=== PATIENT | male | born 1990 | race African-American/Black ===

== ENCOUNTER 2024-02-06 22:17 | Emergency (ER) | payer SELFPAY ==
--- NOTE | 2024-02-06 23:19 | ER ---
Nurse's Notes [facility] Name: Moe Wiley III Age: 33 yrs Sex: Male : 1990 Arrival Date: 02/06/2024 Time: 22:17 Bed DX4 Private MD: Diagnosis: Acute bronchitis, unspecified Presentation: 02/05 22:33 Chief complaint: Patient states: painful/ continuous cough X6 days with sore throat. lg3 pain to L lung region. Coronavirus screen: Client denies travel out of the [place] in the last 14 days. Client presents with at least one sign or symptom that may indicate coronavirus-19. Standard/surgical mask placed on the client. Ebola Screen: No symptoms or risks identified at this time. Initial Sepsis Screen: Does the patient meet any 2 criteria? No. Patient's initial sepsis screen is negative. Does the patient have a suspected source of infection? No. Patient's initial sepsis screen is negative. Risk Assessment: Do you want to hurt yourself or someone else? Patient reports no desire to harm self or others. Onset of symptoms was February 01, 2024. 22:33 Method Of Arrival: Ambulatory lg3 22:33 Acuity: JOSE MARTIN 4 lg3 Triage Assessment: 22:35 General: Appears in no apparent distress. comfortable, Behavior is calm, cooperative. lg3 Pain: Complains of pain in left lateral anterior chest Pain does not radiate. Aggravated by cough. EENT: No deficits noted. No signs and/or symptoms were reported regarding the EENT system. Neuro: No deficits noted. Goldsmith Agitation-Sedation Scale (RASS): 0 - Alert and Calm Level of Consciousness is awake, alert, obeys commands, Oriented to person, place, time, situation. Cardiovascular: No deficits noted. Capillary refill < 3 seconds Clubbing of nail beds is absent JVD is absent Patient's skin is warm and dry. Respiratory: Reports cough that is pain with cough Airway is patent Respiratory effort is even, unlabored, Respiratory pattern is regular, symmetrical. GI: No deficits noted. No signs and/or symptoms were reported involving the gastrointestinal system. : No deficits noted. No signs and/or symptoms were reported regarding the genitourinary system. Derm: No deficits noted. No signs and/or symptoms reported regarding the dermatologic system. Skin is intact, is healthy with good turgor, Skin is dry, Skin is normal, Skin temperature is warm. Musculoskeletal: No deficits noted. No signs and/or symptoms reported regarding the musculoskeletal system. Circulation, motion, and sensation intact. Range of motion: intact in all extremities. Historical: - Allergies: 22:35 No Known Allergies; lg3 - Home Meds: 22:35 None [Active]; lg3 - PMHx: 22:35 None; lg3 - PSHx: 22:35 None; lg3 - Immunization history:: Adult Immunizations up to date. - Infectious Disease History:: Denies. - Social history:: Smoking status: Patient denies any tobacco usage or history of. Patient uses alcohol, occasionally. Patient/guardian denies using street drugs. Screenin/14 00:[address] [facility] ED Fall Risk Assessment (Adult) History of falling in the last 3 months, lg3 including since admission No falls in past 3 months (0 pts) Confusion or Disorientation No (0 pts) Intoxicated or Sedated No (0 pts) Impaired Gait No (0 pts) Mobility Assist Device Used No (0 pt) Altered Elimination No (0 pt) Score/Fall Risk Level 0 - 2 = Low Risk Oriented to surroundings, Maintained a safe environment, Educated pt \T\ family on fall prevention, incl call for assistance when getting out of bed, Assessed \T\ reinforced patient's understanding of fall precautions. Abuse screen: Denies threats or abuse. Denies injuries from another. Nutritional screening: No deficits noted. Tuberculosis screening: No symptoms or risk factors identified. Assessment: 02/05 23:35 General: see triage assessment. lg3 02/06 00:10 Reassessment: Patient appears in no apparent distress at this time. No changes from lg3 previously documented assessment. Patient and/or family updated on plan of care and expected duration. Pain level reassessed. Patient is alert, oriented x 3, equal unlabored respirations, skin warm/dry/pink. Vital Signs: 02/05 22:33 BP 130 / 88; Pulse 98; Resp 17 S; Temp 98.6(O); Pulse Ox 100% on R/A; Weight 95.25 kg lg3 (R); Height 5 ft. 9 in. (R); 02/06 00:11 BP 134 / 81; Pulse 91; Resp 18 S; Pulse Ox 100% on R/A; lg3 02/05 22:33 Body Mass Index 31.01 (95.25 kg, 175.26 cm) lg3 ED Course: 02/05 22:24 Patient arrived in ED. ra3 22:35 Triage completed. lg3 22:35 Arm band placed on right wrist. lg3 22:36 Heather Chisholm [facility]C [facility]. sb4 22:37 Irving Herrera MD is Attending Physician. sb4 22:59 Chest Pa And Lat (2 Views) XRAY In Process Unspecified. EDMS 02/06 00:03 Marion Baum, RN is Primary Nurse. lg3 00:10 Patient has correct armband on for positive identification. lg3 00:10 No provider procedures requiring assistance completed. Patient did not have IV access lg3 during this emergency room visit. Administered Medications: 00:04 Drug: Dexamethasone IM 10 mg IM once Route: IM; Site: left deltoid; cp4 00:11 Follow up: Response: No adverse reaction lg3 Medication: 00:11 VIS not applicable for this client. lg3 Outcome: 02/05 23:19 Discharge ordered by . sb4 02/06 00:11 Discharged to home ambulatory, lg3 Condition: stable Discharge instructions given to patient, Instructed on discharge instructions, follow up and referral plans. medication usage, Demonstrated understanding of instructions, follow-up care, medications, Prescriptions given X 2, 00:12 Patient left the ED. lg3 Signatures: Dispatcher [employer] EDMS Marion Baum RN RN lg3 Heather Chisholm PA-C PA-C sb4 Dania Askew cp4 Janay Valle ra3 Corrections: (The following items were deleted from the chart) 02/05 22:37 22:33 BP 140 / 92; Pulse 98bpm; Resp 17bpm; Spontaneous; Pulse Ox 100% RA; Temp 98.6F lg3 Oral; 95.25 kg Reported; Height 5 ft. 9 in. Reported; BMI: 31.0; lg3
--- NOTE | 2024-02-06 23:19 | EDPHYS ---
Physician Documentation [facility] Name: Moe Wiley III Age: 33 yrs Sex: Male : 1990 Arrival Date: 02/06/2024 Time: 22:17 Bed DX4 Private MD: SHY Physician Irving Herrera HPI: 02/06 00:07 This 33 yrs old Black Male presents to ER via Ambulatory with complaints of Painful sb4 Cough. 00:07 The patient or guardian reports cough, described as moderate, with productive sputum, sb4 that is yellow. Onset: The symptoms/episode began/occurred 8 day(s) ago. Modifying factors: The symptoms are alleviated by nothing, the symptoms are aggravated by exertion. Associated signs and symptoms: The patient has no apparent associated signs or symptoms. The patient has not experienced similar symptoms in the past. The patient has not recently seen a physician. Historical: - Allergies: 02/05 22:35 No Known Allergies; lg3 - Home Meds: 22:35 None [Active]; lg3 - PMHx: 22:35 None; lg3 - PSHx: 22:35 None; lg3 - Immunization history:: Adult Immunizations up to date. - Infectious Disease History:: Denies. - Social history:: Smoking status: Patient denies any tobacco usage or history of. Patient uses alcohol, occasionally. Patient/guardian denies using street drugs. ROS: 02/06 00:07 Constitutional: Negative for fever, chills, and weight loss, sb4 Respiratory: Positive for cough, with yellow sputum, pleurisy, All other systems are negative, Exam: 00:07 Constitutional: This is a well developed, well nourished patient who is awake, alert, sb4 and in no acute distress. Head/Face: Normocephalic, atraumatic. Eyes: Extra-ocular motions intact. Periorbital areas with no swelling, redness, or edema. ENT: Mucous membranes moist. Cardiovascular: Regular rate and rhythm with a normal S1 and S2. Respiratory: Lungs have equal breath sounds bilaterally, clear to auscultation and percussion. No rales, rhonchi or wheezes noted. No increased work of breathing, no retractions or nasal flaring. Skin: Warm, dry with normal turgor. Normal color with no rashes, no lesions, and no evidence of cellulitis. Vital Signs: 02/05 22:33 BP 130 / 88; Pulse 98; Resp 17 S; Temp 98.6(O); Pulse Ox 100% on R/A; Weight 95.25 kg lg3 (R); Height 5 ft. 9 in. (R); 02/06 00:11 BP 134 / 81; Pulse 91; Resp 18 S; Pulse Ox 100% on R/A; lg3 02/05 22:33 Body Mass Index 31.01 (95.25 kg, 175.26 cm) lg3 MDM: 02/05 22:37 Patient medically screened. sb4 02/06 00:07 Data reviewed: vital signs, nurses notes, radiologic studies, and as a result, I will sb4 discharge patient. Counseling: I had a detailed discussion with the patient and/or guardian regarding the historical points, exam findings, and any diagnostic results supporting the discharge/admit diagnosis, radiology results, the need for outpatient follow up, for definitive care, to return to the emergency department if symptoms worsen or persist or if there are any questions or concerns that arise at home. 02/05 22:44 Order name: Chest Pa And Lat (2 Views) XRAY sb4 Administered Medications: 00:04 Drug: Dexamethasone IM 10 mg IM once Route: IM; Site: left deltoid; cp4 00:11 Follow up: Response: No adverse reaction lg3 Disposition Summary: 02/06/24 23:19 Discharge Ordered Notes: Location: Home sb4 Problem: new sb4 Symptoms: are unchanged sb4 Condition: Stable sb4 Diagnosis - Acute bronchitis, unspecified sb4 Followup: sb4 - With: Emergency Department - When: As needed - Reason: Trouble breathing, Worsening of condition Discharge Instructions: - Discharge Summary Sheet sb4 - Acute Bronchitis, Adult sb4 Forms: - Patient Portal Instructions sb4 - Leadership Thank You Letter sb4 Prescriptions: - Tessalon Perles 100 mg Oral Capsule - take 1 capsule ORAL route every 8 hours As needed; 15 capsule; Refills: 0, sb4 Product Selection Permitted - Prednisone 20 mg Oral Tablet - take 1 tablet ORAL route every 12 hours for 5 days; 10 tablet; Refills: 0, sb4 Product Selection Permitted Signatures: Dispatcher [employer] Marion Ennis RN RN lg3 Heather Chisholm PA-C PA-C sb4 Dania Askew cp4
[2024-02-07] MEDS ORDERED: dexAMETHasone 10 MG/ML VIAL ONE (00:02)
[2024-02-07 05:03] VITALS: TEMP 98.6; O2SAT 100
[2024-02-07 05:06] VITALS: BP 134/81
--- NOTE | 2024-02-07 06:23 | RAD REPORT ---
EXAM DESCRIPTION: Chest Pa And Lat (2 Views) CLINICAL HISTORY: Cough;Congestion;Chest pain TECHNIQUE: PA and lateral chest COMPARISON: None available for comparison FINDINGS: CHEST: Heart: The cardiomediastinal silhouette is within normal limits. Lungs: No focal consolidation. Mediastinum: Unremarkable Pleura: No appreciable effusion. No pneumothorax. Bones: Intact IMPRESSION: No acute cardiopulmonary disease. Electronically signed by: Panfilo Bradley MD 02/06/2024 11:14 PM CDT RP Due to temporary technical issues with the PACS/AI Exchange reporting system, reports are being zofia d by the in-house radiologist without review as a courtesy to ensure prompt reporting the interpreting radiologist is fully responsible for the content of the report. Transcribed Date/Time: 02/07/2024 6:23 AM
== END 2024-02-07 00:12 | disposition home or self-care (01) ==
LOC: ER 22:17
DX: J20.9 Acute bronchitis, unspecified (principal)
CPT/HCPCS: 71046; 96372; 99284; J1100